=== PATIENT | male | born 1975 | race Caucasian/White ===

== ENCOUNTER → 2016-04-20 | Outpatient (CLI) | payer BC, OTHER ==
[~2016-04-20] MED LIST: CLON1TAB3 PO; CNC/36 PO; MOML PO; OXYC-57 PO; WARF2TAB PO
== END | disposition home or self-care (01) ==
LOC: C.RDSM 08:45
PROVIDERS: ATTEND Physical Medicine & Rehabilitation Sports Medicine
DX: Z96.642 Presence of left artificial hip joint (principal)

== ENCOUNTER → 2016-10-19 | Outpatient (CLI) | payer OTHER ==
[~2016-10-19] MED LIST changes: -OXYC-57 PO; -WARF2TAB PO
== END | disposition home or self-care (01) ==
LOC: C.RDSM 14:36
PROVIDERS: ATTEND Physical Medicine & Rehabilitation Sports Medicine
DX: M16.12 Unilateral primary osteoarthritis, left hip (principal); M16.2 Bilateral osteoarthritis resulting from hip dysplasia; Z96.642 Presence of left artificial hip joint

== ENCOUNTER → 2016-12-17 | Outpatient (CLI) | payer OTHER ==
--- NOTE | 2016-12-17 17:01 | DIAGNOSTIC IMAGING REPORT ---
LEFT SHOULDER 3 VIEWS HISTORY: LEFT SHOULDER PAIN COMPARISON: None. FINDINGS: There is no fracture or dislocation. Soft tissues are unremarkable. No radiopaque foreign bodies. The left clavicle is intact. Incidental noted is made of an os acromiale. IMPRESSION: No fracture or dislocation within the left shoulder. Electronically signed by: Mal Serrato M.D. 12/17/2016 4:59 PM Dictated Date/Time: 12/17/2016 4:58 PM
== END | disposition home or self-care (01) ==
LOC: C.RDSM 16:00
PROVIDERS: ATTEND Physician Assistant
DX: M25.512 Pain in left shoulder (principal)

== ENCOUNTER → 2017-01-01 | Outpatient (CLI) | payer OTHER ==
[~2017-01-01] MED LIST changes: +GADAVIST IV PRN
--- NOTE | 2017-01-01 14:03 | DIAGNOSTIC IMAGING REPORT ---
FLUOROSCOPICALLY GUIDED LEFT SHOULDER ARTHROGRAM PRIOR TO MRI CLINICAL HISTORY: Left shoulder pain. FLUOROSCOPY TIME: 11 seconds. PROCEDURE: The procedure, risks and benefits were discussed with the patient and informed written consent was obtained. The procedure was performed by Dr. Leone following a timeout. Skin overlying the left glenohumeral joint was prepped and draped in sterile fashion and local anesthesia was achieved with 1% lidocaine. Under intermittent fluoroscopic guidance, a 2 1/2 inch, 22-gauge needle was directed into the left glenohumeral joint. Positioning within the joint space was confirmed with injection of a small amount of contrast. At this time, 10 cc of a mixture of 0.05 cc of gadolinium, 10 cc of normal saline and 10 cc of Optiray 300 was injected into the left glenohumeral joint. The needle was removed. The patient tolerated the procedure well and no immediate competitions were evident. The patient was transported to MRI. IMPRESSION: Fluoroscopically guided left shoulder arthrogram prior to MRI. Electronically signed by: Keegan Leone M.D. 01/01/2017 2:02 PM Dictated Date/Time: 01/01/2017 1:59 PM
--- NOTE | 2017-01-01 14:51 | DIAGNOSTIC IMAGING REPORT ---
L UPPER EXTREMITY JOINT W/ CLINICAL HISTORY: 41 years-old Male presenting with PAIN IN LEFT SHOULDER. TECHNIQUE: Multisequence, multiplanar MR imaging of the left shoulder was performed after the administration of intra-articular contrast. IV contrast: None. COMPARISON: 12/13/2013. FINDINGS: Localizer images: Unremarkable. No bony edema. Mild superior subluxation of the humeral head with resultant narrowing of the acromiohumeral interval indicating chronic impingement. Articular cartilage preserved. Normal distention of the joint capsule with intra-articular contrast. Full-thickness tear of the posterior fibers of the supraspinatus. The configuration of the tear demonstrates a prominent laminar component extending from the footplate at the articular surface to the bursal surface at the critical zone. Partial articular surface tear at the footplate of the anterior fibers of the infraspinatus. Teres minor intact. Subscapularis intact. Postsurgical changes of tenodesis of the long head of the biceps at the proximal humeral metaphysis. Scarring noted more superiorly in the intertubercular groove. The abnormal appearance of the biceps labral complex may in part be postsurgical. Extensive abnormality of the superior labrum extending from the 2:00 position anteriorly to the posterior labrum consistent with a SLAP tear. Deficiency of the posterior labrum also noted. Normal muscle bulk and normal muscle signal intensity. Acromioclavicular joint with mild degenerative change. Flat undersurface of the acromion. IMPRESSION: 1. Postsurgical changes of tenodesis of the long head of the biceps tendon, unchanged from prior. 2. Findings concerning for extensive SLAP tear, which is new since 2013. 3. Full-thickness tear of the posterior fibers of the supraspinatus. 4. Partial articular surface tear of the anterior fibers of the infraspinatus. 5. Chronic impingement evidenced by mild superior subluxation of the humeral head and narrowing of the acromiohumeral interval. Electronically signed by: Ken Grijalva M.D. 01/01/2017 2:49 PM Dictated Date/Time: 01/01/2017 2:35 PM
== END | disposition home or self-care (01) ==
LOC: C.MRIBC 12:41
PROVIDERS: ATTEND Physician Assistant
DX: M25.512 Pain in left shoulder (principal); M75.102 Unspecified rotator cuff tear or rupture of left shoulder, not specified as traumatic

== ENCOUNTER → 2017-03-05 | Day surgery (SDC) | payer OTHER ==
[2017-02-05 11:29] VITALS: Ht 180.3 cm; Wt 113.6 kg
[~2017-03-05] VITALS: Ht 180.3 cm; Wt 113.6 kg
[~2017-03-05] MED LIST changes: +ATROPINE SULFATE 0.1 MG/ML 5ML SYR IV PRN; +BUPIVACAINE/EPINEPHRINE 0.5% MPF 1:200,000 30 ML VIAL ONE; +CEFAZOLIN 2000MG IV PUSH 10 ML IV SCH; +DEXAMETHASONE SOD INJ 4 MG/ML VIAL ONE; +EpINEphrine HCL INJ 1 MG/ML 5ML SYRINGE ONE; +EpINEphrine INJ 1MG/ML AMP 1 MG/ML AMP ONE; +FENTANYL CITRATE INJ 50 MCG/1 ML 2 ML VIAL IV PRN; +FENTANYL CITRATE INJ 50 MCG/1 ML 2 ML VIAL ONE; -GADAVIST IV PRN; +KETOROLAC TROMETHAMINE 30 MG/ML VIAL IV. PRN; +LABETALOL HCL IV 5 MG/ML 20ML IV PRN; +LACTATED RINGER'S 1000ML 1,000 ML IV SCH; +LEVOFLOXACIN 500 MG TAB PO SCH; +LIDOCAINE HCL 2% 2 ML VIAL (20MG/ML) ONE; +MIDAZOLAM HCL 1 MG/ML 2ML VIAL ONE; -MOML PO; +NAPR1TAB9 PO; +ONDANSETRON INJ 2 MG/ML 2 ML VIAL IV PRN; +ONDANSETRON INJ 2 MG/ML 2 ML VIAL ONE; +PROPOFOL IV EMULSION 10 MG/ML 20 ML VIAL IV ONE; +ROPIVACAINE 0.5% 5 MG/ML 30 ML VIAL ONE; +SODIUM CHLORIDE 0.9% 1000ML 1,000 ML IV SCH
--- NOTE | 2017-03-05 09:12 | History & Physical Bridge Note ---
H&P Re-Evaluation Bridge Note: I have examined the patient, reviewed the History & Physical and in the interval since the performance of the History & Physical I have noted the following changes of clinical significance:consent reviewed. No changes noted
--- NOTE | 2017-03-05 09:14 | Discharge Instructions ---
Discharge Instructions Date of Service Mar 05, 2017. Visit Reason for Visit: Left Shoulder Rotator Cuff Tear, Subacromial Discharge Discharge Diagnosis / Problem: same Discharge Goals Goal(s): Decrease discomfort, Improve function Medications Stopped Medications Name(s): na Restart Stopped Medication(s): use all scripts as directed Activity Recommendations Activity Limitations: as noted below Lifting Limitations: until after follow-up appointment Exercise/Sports Limitations: until after follow-up appointment May Resume Sexual Activity: when tolerated Shower/Bathe: keep incision dry Driving or Machine Use: Anesthesia . Post Anesthesia Instructions: If you have had General Anesthesia or IV Sedation: * Do not drive today. * Resume driving when surgeon permits. * Do not make important decisions or sign legal documents today. * Call surgeon for: 1. Temperature elevations greater than 101 degrees F. 2. Uncontrollable pain. 3. Excessive bleeding. 4. Persistent nausea and vomiting. 5. Medication intolerance (nausea, vomiting or rash). * For nausea and vomiting use only clear liquids such as: tea, soda, bouillon until nausea subsides, then gradually increase diet as tolerated. * If you have any concerns or questions, call your surgeon's office. If physician is unavailable and it is an emergency, call 911 or go to the nearest emergency room. . Instructions / Follow-Up Instructions / Follow-Up The following are instructions to follow after "Shoulder Surgery" including, Acromioplasty, Rotator Cuff Repair and Instability Surgery ACTIVITY RECOMMENDATIONS: * Minimize activity after surgery. * No excessive walking, jogging, sports or laboring. * Return to activity is individualized depending on the patient and type of surgery. * Driving is not permitted until at least your first post operative visit. Please ask your doctor when it is safe to resume driving. * Expect increased discomfort with increased activity. Continue to ice the shoulder as needed. SCHOOL/WORK RECOMMENDATIONS: * You may return to sedentary work or school when you are feeling more comfortable. This is usually 3-7 days after surgery. MEDICATIONS: * You will have a prescription for pain medication and an anti-inflammatory medication after surgery. * Use the pain medication for severe pain and the anti-inflammatory for less severe pain. Once the pain medication has run out, try to use the anti-inflammatory medication. If this is not effective, contact the office for assistance. * The pain medication may cause nausea, constipation and drowsiness. You should see how they affect you before driving or similar activity. * The anti-inflammatory medication may cause stomach upset and bleeding. If this occurs let your doctor know immediately . * Take a stool softener like Colace or a laxative like Senokot to prevent constipation. DIET: * Resume previous diet. SPECIAL CARE: ICE: You have the option of an ice cooler, gel packs or ice bags. * If you have an ice cooler, refer to the instructions for that device. The ice cooler may be used continuously. * If you do not have an ice cooler, you will need to use ice bags or gel packs. Do not apply ice directly to the skin. Use a thin dressing or camila shirt between the skin and ice bag. Apply ice for 20-30 minutes and repeat every 2-4 hours. This is especially important for the first 7-10 days after surgery. Once the pain improves, use ice as needed. ELEVATION: * You may be more comfortable sleeping in an upright position. Use the sling to elevate your arm. DRESSING: * Your dressing will be changed at your first therapy appointment approximately 4-5 days after surgery. Band-aids, tape strips or gauze may be applied. You may then change your dressing daily. * Reapply dressing followed by the EBIce cooling pad (if chosen) and then the sling. * Always wash your hands prior to touching the incision area. * Once the stitches are removed, you may leave the wound open to air or cover with gauze. * Expect some bloody drainage for the first few days after surgery. * Leave the tape strips, if present, in place for 5-7 days. * Band-aids and gauze may be changed daily. * There may be a gauze pad in your armpit area. This can be changed daily or replaced by a dry washcloth. SLING/BRACE: * You will need to use a sling or brace after surgery. The length of time the sling is used is dependent upon the type of surgery performed. * Arthroscopic Acromioplasty requires use of the sling for 2-4 weeks for comfort. * Labral procedures and Rotator Cuff Repairs require use of the sling for a longer period of time. Please check with your doctor prior to discontinuing the sling. BATHING: * You may shower or sponge-bathe immediately after surgery. The post operative shoulder dressing is mostly water-tight. You may shower right over this dressing, but be reasonably careful not to get the gauze or incision wet. * Once the dressing has been changed on the fourth or fifth day after surgery, you may shower and get the incision wet. * Wash with regular soap and water. * Do not bathe (submerge the incision), soak, swim or use a hot tub until the incision is completely healed over with normal skin and the doctor has given the OK to proceed. * There is no need to apply any ointments, powders or salves to your incision. * Do not apply alcohol or hydrogen peroxide directly to the incision. * Diluted peroxide (50:50 mixture with sterile saline) may be used to clean dried blood from around the incision area. THERAPY: * You will begin therapy four or five days after surgery. * Organized therapy with the therapist is important for the first 2-4 months after surgery depending on the type of procedure. During that time you will attend therapy 1-3 times per week. * You will also need to do daily exercises for range of motion and strength as instructed. * Patients who have a Capsular Shift Procedure will need to abide by temporary range of motion limitations. * Patients having Rotator Cuff Surgery are not allowed to actively lift their arms until 4-6 weeks after surgery. * Please check with your doctor regarding appropriate motion restrictions. FOLLOW UP VISIT: * If not already scheduled, please call the office at to schedule a follow-up appointment for 10 days after surgery and monthly thereafter. Diet Recommendations Recommended Home Diet: resume previous diet Procedures Procedures Performed: ascopy cuff repair Pending Studies Studies pending at discharge: no Medical Emergencies . Who to Call and When: Medical Emergencies: If at any time you feel your situation is an emergency, please call 911 immediately. . Non-Emergent Contact Non-Emergency issues call your: Specialist Call Non-Emergent contact if: temperature is above 101.5, wound has increased drainage, wound has increased redness, wound has increased pain . . "Provider Documentation" section prepared by Eric Sharma. .
--- NOTE | 2017-03-05 10:41 | [facility] Post Operative Brief Note ---
Immediate Operative Summary Operative Date Mar 05, 2017. Pre-Operative Diagnosis Left Shoulder Rotator Cuff Tear Post-Operative Diagnosis Same Procedure(s) Performed Left Shoulder Arthroscopic Rotator Cuff Repair, Subacromial Decompression/os debridement Surgeon Dr. Beny Sharma E M Assembler Surgeon(s) Thomas Reinoso PA-C Estimated Blood Loss trace Findings see op note Fluids (cc crystalloids) 900cc Specimens None Drains none Anesthesia LMA/block Complication(s) None Disposition Recovery Room / PACU
--- NOTE | 2017-03-05 10:43 | [facility] Operative Report ---
Operative Report Operative Date Mar 05, 2017. Pre-Operative Diagnosis Left Shoulder Rotator Cuff Tear Post-Operative Diagnosis Same Procedure(s) Performed Left Shoulder Arthroscopic Rotator Cuff Repair, Subacromial Decompression/os debridement Surgeon Dr. Beny Sharma Finger Cobbler Surgeon(s) Thomas Reinoso PA-C Estimated Blood Loss trace Findings none Fluids (cc crystalloids) 900cc Specimens None Complication(s) None Disposition Recovery Room / PACU I attest to the content of the Intraoperative Record and any orders documented therein. Any exceptions are noted below.
--- NOTE | 2017-03-05 11:12 | OPERATIVE REPORT ---
DATE OF OPERATION: 03/05/2017 SURGEON: Dr. Sharma. TOILET ATTENDANT: Dr. Reinoso. No resident or fellow available. 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 POSTOPERATIVE DIAGNOSES: Same. History of a previous surgery. PERIOPERATIVE SITUATION: Medically cleared male with intractable shoulder pain with physical exam, x-ray and MRI scan consistent with the above diagnosis. He had a previous procedure that failed and has continued pain all about the shoulder including the os. It is not something that could be grafted as it was already trimmed once by a prior procedure. He had a biceps tenotomy as well. OPERATION: The patient appropriately identified, site verified, consent verified, 2 grams of Ancef as being given. The shoulder was examined revealing no anterior instability had posterior glide with no instability as far as dislocatability. He was then carefully prepped and draped in usual routine fashion in the beach chair position, left upper extremity. A posterior portal made 2 cm medial and inferior to posterolateral tip of the acromion and anterior portal made just off the edge of the AC joint. Inspection of the joint revealed a previous biceps tenotomy, some labral degeneration, rotator cuff tendinopathy at the posterior aspect of the supraspinatus and anterior aspect of the infraspinatus, this was debrided. It was then localized with a needle. Subacromial space was then entered. The complete os acromiale was tipped down and was very loose and starting to fragment. It was teased out with an electrothermal device as there was no other option and it was carefully debrided using a kimmie and shaver, leaving all the deltoid fascia intact. It was well recognized that this would lead to recurrent pain if left alone as it is and it was too small to graft, so this was the only option. The patient was informed of this. Once this was all debrided nicely, the rotator cuff was then identified, tear area was debrided down to bare bone and 3 sutures placed with two 475 anchors with an excellent repair. This was then reviewed from the side and there was no additional pathology. The procedure was then terminated. All instruments and fluid removed. The portals closed with 4-0 nylon, dressed with Xeroform, 4 x 4 gauze, ABD pads and Ioban dressing, and a shoulder immobilizer was then placed. Estimated blood loss was trace. Crystalloid 900 mL. Rotator cuff tear size was approximately 2 cm. No DVT prophylaxis required. I attest to the content of the Intraoperative Record and any orders documented therein. Any exception s are noted below.
[2017-03-05 12:02] VITALS: BP 149/92; PULSE 72; O2SAT 97
--- NOTE | 2017-03-05 12:04 | Anesthesia Progress Nt - [facility] ---
Anesthesia Post Op Note Date & Time Mar 05, 2017 at 12:04 Vital Signs Pain Intensity: 0 Vital Signs Past 12 Hours Date Time Temp Pulse Resp B/P (MAP) Pulse Ox O2 Delivery O2 Flow Rate FiO2 03/05/17 12:02 72 18 149/92 (111) 97 Room Air 03/05/17 11:21 36.7 76 18 141/85 (103) 98 Room Air 03/05/17 11:16 145/69 03/05/17 11:15 89 17 03/05/17 11:15 93 17 94 03/05/17 11:11 144/90 03/05/17 11:10 86 12 03/05/17 11:10 86 12 93 03/05/17 11:06 36.7 82 16 141/83 95 Room Air 03/05/17 11:06 141/83 03/05/17 11:05 84 21 97 03/05/17 11:05 84 21 03/05/17 11:01 136/85 03/05/17 11:00 89 22 03/05/17 11:00 87 22 97 03/05/17 10:56 154/87 03/05/17 10:55 88 17 97 03/05/17 10:55 89 17 03/05/17 10:51 150/84 03/05/17 10:50 84 17 95 03/05/17 10:50 85 17 03/05/17 10:45 94 147/87 95 03/05/17 10:45 94 03/05/17 10:44 36.6 97 16 147/87 96 Mask 10 03/05/17 09:25 14 03/05/17 09:24 72 03/05/17 09:24 74 41 99 03/05/17 09:23 70 11 99 03/05/17 09:23 70 03/05/17 09:22 68 03/05/17 09:22 67 24 98 03/05/17 09:21 73 03/05/17 09:21 70 34 134/89 100 03/05/17 09:20 68 03/05/17 09:20 69 21 100 03/05/17 09:16 131/104 03/05/17 09:15 69 03/05/17 09:15 68 27 99 03/05/17 09:11 140/91 03/05/17 09:10 70 27 100 03/05/17 09:10 68 03/05/17 09:08 134/90 03/05/17 09:05 64 0 95 03/05/17 09:05 64 03/05/17 09:00 65 03/05/17 09:00 64 0 98 03/05/17 08:55 0 03/05/17 08:35 37.0 67 16 127/104 (112) 97 Room Air 03/05/17 08:34 127/104 Notes Mental Status: alert / awake / arousable, participated in evaluation Pt Amnestic to Procedure: Yes Nausea / Vomiting: adequately controlled Pain: adequately controlled Airway Patency, RR, SpO2: stable & adequate BP & HR: stable & adequate Hydration State: stable & adequate Anesthetic Complications: no major complications apparent
== END | disposition home or self-care (01) ==
LOC: X.SURG 08:18
PROVIDERS: ATTEND Physical Medicine & Rehabilitation Sports Medicine
DX: S46.012A Strain of muscle(s) and tendon(s) of the rotator cuff of left shoulder, initial encounter (principal); M75.42 Impingement syndrome of left shoulder; V29.9XXA Motorcycle rider (driver) (passenger) injured in unspecified traffic accident, initial encounter; Z98.890 Other specified postprocedural states; Z68.35 Body mass index [BMI] 35.0-35.9, adult; E66.9 Obesity, unspecified; Z96.642 Presence of left artificial hip joint; F90.9 Attention-deficit hyperactivity disorder, unspecified type

== ENCOUNTER → 2017-04-19 | Outpatient (CLI) | payer OTHER ==
[~2017-04-19] MED LIST changes: -ATROPINE SULFATE 0.1 MG/ML 5ML SYR IV PRN; -BUPIVACAINE/EPINEPHRINE 0.5% MPF 1:200,000 30 ML VIAL ONE; -CEFAZOLIN 2000MG IV PUSH 10 ML IV SCH; -DEXAMETHASONE SOD INJ 4 MG/ML VIAL ONE; -EpINEphrine HCL INJ 1 MG/ML 5ML SYRINGE ONE; -EpINEphrine INJ 1MG/ML AMP 1 MG/ML AMP ONE; -FENTANYL CITRATE INJ 50 MCG/1 ML 2 ML VIAL IV PRN; -FENTANYL CITRATE INJ 50 MCG/1 ML 2 ML VIAL ONE; -KETOROLAC TROMETHAMINE 30 MG/ML VIAL IV. PRN; -LABETALOL HCL IV 5 MG/ML 20ML IV PRN; -LACTATED RINGER'S 1000ML 1,000 ML IV SCH; -LEVOFLOXACIN 500 MG TAB PO SCH; -LIDOCAINE HCL 2% 2 ML VIAL (20MG/ML) ONE; -MIDAZOLAM HCL 1 MG/ML 2ML VIAL ONE; -ONDANSETRON INJ 2 MG/ML 2 ML VIAL IV PRN; -ONDANSETRON INJ 2 MG/ML 2 ML VIAL ONE; -PROPOFOL IV EMULSION 10 MG/ML 20 ML VIAL IV ONE; -ROPIVACAINE 0.5% 5 MG/ML 30 ML VIAL ONE; -SODIUM CHLORIDE 0.9% 1000ML 1,000 ML IV SCH
== END | disposition home or self-care (01) ==
LOC: C.RDSM 08:40
PROVIDERS: ATTEND Physical Medicine & Rehabilitation Sports Medicine
DX: M75.122 Complete rotator cuff tear or rupture of left shoulder, not specified as traumatic (principal); Z96.642 Presence of left artificial hip joint

== ENCOUNTER → 2017-07-29 | Outpatient (CLI) | payer OTHER ==
[~2017-07-29] MED LIST changes: +B-COTAB18 PO; +GLUC10007 PO; +OMEG10007 PO
== END | disposition home or self-care (01) ==
LOC: C.RDSM 13:32
PROVIDERS: ATTEND Physical Medicine & Rehabilitation
DX: M54.5 Low back pain (principal)

== ENCOUNTER 2020-10-21 05:58 | Inpatient (IN) ==
--- NOTE | 2020-08-13 10:45 | PAT Medication Instructions ---
Medication Instructions Date of Service August 13, 2020 Home Medications bupropion HCl [Wellbutrin XL] 300 mg PO QAM ibuprofen 800 mg PO TID ASK your surgeon for instructions ibuprofen 800 mg PO TID Take morning of surgery With a small sip of water, OTHERWISE NOTHING TO EAT OR DRINK AFTER MIDNIGHT: bupropion HCl [Wellbutrin XL] 300 mg PO QAM Insulin Dependent Diabetic Patients * Test your blood sugar the morning of surgery * If Blood Sugar is GREATER THAN 150, take HALF of your regular dose of: * If Blood Sugar is LESS THAN 150, DO NOT TAKE ANY: Other Notes If you have any questions please call us at [phone] or [phone] or [phone] or [phone]
--- NOTE | 2020-08-16 10:08 | Anesthesiology Consultation ---
Date of Service August 16, 2020 Assessment & Plan (1) Encounter for pre-operative examination: COVID screening: Per assessment on 08/16: Travel screen negative, no known COVID- 19 positive contacts or current COVID-19 related symptoms. Patient vaccinated. Surgeon arranging preop COVID testing. Awaiting results. Chart Review Chart Review: Acceptable Risk for Surgery and Patient seen in Pre Admission Testing Teaching & Discussion Pre-Anesthesia Teaching/Discussion Notes: Instructed NPO after midnight before surgery,except medications with 15 cc of water. Medication instructions p rovided according to the PAT guidelines. History Surgery Operation Date: 08/30/20 07:45 Proposed Procedures p L3-L4 Posterior Decompression Fusion , Possible L4-L5, Spinal Cord Monitoring - Dhruv Portillo DO Height/Weight Height: 5 ft 11 in Weight: 123.5 kg Allergies Allergy/AdvReac Type Severity Reaction Status Date / Time No Known Allergies Allergy Verified 08/05/20 11:36 Medications Home Medications Medication Instructions Recorded Confirmed Last Taken bupropion HCl [Wellbutrin XL] 300 mg PO QAM 08/05/20 08/05/20 Unknown ibuprofen 800 mg PO TID 08/05/20 08/05/20 Unknown buspirone [BuSpar] 10 mg PO TID 08/16/20 08/16/20 Unknown hydroxyzine HCl 50 mg PO TID PRN 08/16/20 08/16/20 Unknown Past Medical History Medical History ADD (attention deficit disorder) Anxiety and depression Arthritis Degenerative disc disease Obesity Exercise / Class Metabolic Activity II 4-5 Yardwork/Stairs/Walk up hill Past Family History Family History Mother Family history of diabetes mellitus Other No family history of adverse response to anesthesia Past Surgical History Surgical History Biceps tendon tear Left side repair H/O metal removed from eye H/O shoulder surgery Left x2 History of excision of pilonidal cyst History of herniorrhaphy R/L inguinal History of total hip arthroplasty Left Hx of vasectomy S/P total hip resurfacing Left [place] teeth removed Past Anesthesia History No Hx of Anesthesia Complications (except episode of PONV), No Family Hx of Anesthesia Complications and Other (Awareness with hip replacement) History of PONV No Hx of Motion Sickness and History of PONV (with remote surgery (no issues with subsequent surgeries)) Social History Smoking Status: Never smoker Do You Dip or Chew Tobacco: No Hx Alcohol Use: No substance use type: does not use Review of Systems Patient denies chest pain, shortness of breath, dyspnea on exertion, fever, chills, cough, wheezing, palpitations. Physical Exam Vital Signs VITALS BP 148/92 (pt reports BP earlier in the day was 140/84) P 95 TEMP 98.4 SP02 96%RA RESP 18 PHYSICAL Full cervical extension range of motion. Full TMJ range of motion. TMD 4 finger breaths Mallampati Score 2 Dentition: intact, + bridge (upper front) Lungs: clear throughout to auscultation Cardiac: regular rate and rhythm, no murmurs noted Spine: normal Extremities: no edema Lab Results Anesthesia Preop Results Results Anesthesia Widget: WBC 11.17 K/uL (4.8-10.8) H 08/16/20 Hgb 15.6 g/dL (14.0-18.0) 08/16/20 Hct 46.2 % (42-52) 08/16/20 Plt 234 K/uL (130-400) 08/16/20 Na 140 mmol/L (136-145) 08/16/20 K 4.1 mmol/L (3.5-5.1) 08/16/20 Cl 107 mmol/L (98-107) 08/16/20 CO2 30 mmol/L (21-32) 08/16/20 BUN 14 mg/dl (7-18) 08/16/20 Creat 1.16 mg/dl (0.6-1.4) 08/16/20 Glucose Level 105 mg/dl (70-99) H 08/16/20 PT 10.0 Seconds (9.0-12.0) 08/16/20 PTT 26.0 Seconds (21.0-31.0) 08/16/20 INR 1.0 (0.9-1.1) 08/16/20 Urine Color Yellow 08/16/20 Urine Appearance Clear (Clear) 08/16/20 Urine pH 6.0 (4.5-7.5) 08/16/20 Urine Specific [place] 1.007 (1.000-1.030) 08/16/20 Urine Protein Negative (Negative) 08/16/20 Urine Glucose (UA) Negative (Negative) 08/16/20 Urine Ketones Negative (Negative) 08/16/20 Urine Blood Negative (Negative) 08/16/20 Urine Nitrite Negative (Negative) 08/16/20 Urine Bilirubin Negative (Negative) 08/16/20 Urine Urobilinogen Negative (Negative) 08/16/20 Urine Leukocyte Esterase Negative (Negative) 08/16/20 Blood Type AB Negative 08/16/20 Antibody Screen NEGATIVE 08/16/20 Lab Comments: Elevated WBC > preop labs to be forwarded to PCP for continuity of care Testing Electrocardiogram Date: 08/16/20 Findings: + NSR @ (84) Chest X-Ray Date: 08/16/20 FINDINGS: The cardiac and mediastinal contours are normal. There is no evidence of focal pulmonary consolidation. There is no evidence of failure. No pleural effusions are visualized.[ IMPRESSION: No active disease in the chest.
[2020-10-21] MEDS ORDERED: ACETAMINOPHEN 500 MG TAB PO SCH (06:00)
[2020-10-21] MEDS ORDERED: CeleBREX 200 MG CAP PO SCH (06:00)
[2020-10-21] MEDS ORDERED: LR 15ML/HR IV SCH (06:00)
[2020-10-21] MEDS ORDERED: GABAPENTIN 900 MG DOSE PO SCH (06:00)
[2020-10-21] MEDS ORDERED: fentaNYL citrate 100 MCG/2 ML VIAL IV PRN (06:46)
[2020-10-21] MEDS ORDERED: ATROPINE SULFATE 0.1 MG/ML 10ML SYR IV PRN (06:46)
[2020-10-21] MEDS ORDERED: ePHEDrine sulfate 50 MG/ML AMP IV PRN (06:46)
[2020-10-21] MEDS ORDERED: HYDROmorphone INJ 2 MG/ML SYR/VIAL IV PRN (06:46)
[2020-10-21] MEDS ORDERED: ONDANSETRON INJ 2 MG/ML 2 ML VIAL IV PRN ×2 (06:46→11:15)
[2020-10-21] MEDS ORDERED: fentaNYL citrate 100 MCG/2 ML VIAL ONE (06:47)
[2020-10-21] MEDS ORDERED: MIDAZOLAM HCL 1 MG/ML 2ML VIAL ONE (06:47)
[2020-10-21] MEDS ORDERED: LIDOCAINE 2% 2 ML VIAL/AMP(20MG/ML) INFIL ONE (06:47)
[2020-10-21] MEDS ORDERED: PROPOFOL IV EMULSION 10 MG/ML 20 ML VIAL IV ONE ×2 (06:47→09:48)
[2020-10-21] MEDS ORDERED: BUPIVACAINE 0.5 % 5 MG/1 ML MPF 30ML VIAL ONE (06:49)
[2020-10-21] MEDS ORDERED: EPINEPHrine INJ 1 MG/ML AMP ONE (06:49)
[2020-10-21] MEDS ORDERED: DEXAMETHASONE SOD INJ 4 MG/ML VIAL ONE (07:07)
[2020-10-21] MEDS ORDERED: ROCURONIUM BROMIDE 10 MG/ML 5 ML VIAL IV ONE ×4 (07:07→09:37)
[2020-10-21] MEDS ORDERED: ONDANSETRON INJ 2 MG/ML 2 ML VIAL ONE ×2 (07:07→09:01)
--- NOTE | 2020-10-21 07:31 | History & Physical Bridge Note ---
Date of Service October 21, 2020 History & Physical Bridge Note I have examined the patient, reviewed the History & Physical and in the interval since the performance of the History & Physical I have noted the following changes of clinical significance: no changes noted
--- NOTE | 2020-10-21 07:32 | History & Physical Report ---
Date of Service October 21, 2020 Assessment & Plan (1) Neurogenic claudication due to lumbar spinal stenosis: Plan: L3-L4 decompression fusion, possible L4-L5 History of Present Illness Chief Complaint: Back and bilateral leg pain Primary Care Provider: Luis Alberto Sheridan Presents with chronic persistent back and bilateral leg pain after failed extensive course of nonoperative care is here for surgical invention. Allergies Allergy/AdvReac Type Severity Reaction Status Date / Time No Known Allergies Allergy Verified 10/21/20 06:20 Home Medications Medication Instructions Recorded Confirmed Type ibuprofen 800 mg tablet 800 mg PO TID PRN 08/05/20 10/21/20 History clonazepam 1 mg tablet (Klonopin) 1 mg PO TID 10/09/20 10/21/20 History duloxetine 60 mg capsule,delayed 60 mg PO QAM 10/09/20 10/21/20 History release (Cymbalta) methylphenidate HCl 36 mg 36 mg PO BID 10/09/20 10/21/20 History tablet,extended release 24 hr (Concerta) Past Med/Surg History Medical History (Updated 10/21/20 @ 07:32 by Dhruv Portillo DO) ADD (attention deficit disorder) Anxiety and depression Arthritis Degenerative disc disease PAIN LOWER BACK Obesity Surgical History Biceps tendon tear Left side repair H/O metal removed from eye H/O shoulder surgery Left x2 History of excision of pilonidal cyst History of herniorrhaphy RIGHT inguinal History of total hip arthroplasty Left Hx of vasectomy Nausea and vomiting after administration of anesthetic agent WITH FIRST SURGERY/WOKE UP DURING HIP SURGERY-"HEARD THE SAW"THEN WENT BACK TO SLEEP S/P total hip resurfacing Left [place] teeth removed Family History Mother Family history of diabetes mellitus Other No family history of adverse response to anesthesia Social History (Updated 10/09/20 @ 11:48 by Jessica Quiros RN) Smoking Status: Never smoker Second Hand Exposure: No; Do You Dip or Chew Tobacco: No; Hx Alcohol Use: No Hx Substance Use: No Preferred Language: Brazilian Communication Ability: Effective Application Analyst Required: No Beliefs That Will Affect Care: None Current Living Situation: Spouse and Family current occupational status: employed current occupation: [employer] Other Information That Helps Us Care for You: No Feels Safe at Home: Yes Safety Concerns: Feels Safe At This Time Assistive Devices: Contacts and Glasses Assistive Devices Comment: WILL WEARS GLASSES DOS/BRIDGE FRONT UPPER Physical Exam Physical Exam: Patient is alert and oriented Heart regular rhythm Lungs clear to auscultation Results & Data ([facility]) Vital Signs (Past 12 Hours) Vital Signs Temp Pulse Resp BP Pulse Ox 10/21/20 06:41 36.9 C 69 18 136/86 93
[2020-10-21] MEDS ORDERED: KETAMINE 50 MG/5 ML SYRINGE ONE (08:08)
[2020-10-21] MEDS ORDERED: FLOSEAL HEMOSTATIC MATRIX 10ML TOP ONE ×2 (08:21→08:50)
[2020-10-21] MEDS ORDERED: GLYCOPYRROLATE 0.2 MG/ML VIAL ONE (09:01)
[2020-10-21] MEDS ORDERED: NEOSTIGMINE METHYLSULFATE 1 MG/ML 10ML VIAL ONE (09:01)
[2020-10-21] MEDS ORDERED: HYDROmorphone INJ 2 MG/ML SYR/VIAL ONE (09:09)
--- NOTE | 2020-10-21 09:55 | Operative Report ---
Post Operative Report Pre & Post Diagnosis Operation Date: 10/21/20 07:45 Pre-Op Diagnosis: Neurogenic claudication due to lumbar spinal stenosis Post-Op Diagnosis: Neurogenic claudication due to lumbar spinal stenosis I identified the patient and participated in the time-out.: Yes Procedure Operation Date: 10/21/20 07:45 Actual Procedures #1 lumbar decompression with bilateral medial facetectomies and foraminotomies L2-3, L3-4 and L4-5. #2 posterior spinal fusion L3-4 L4-5. #3 placement posterior instrumentation L3-4 L4-5. #4 interbody fusion L3-4 L4-5 #5 placement peek cage 14 x 26 at L3-L4 and 12 x 26 mm at L4-L5. #6 placement locally harvested morselized autograft in the posterior lateral gutters. #7 placement of I factor with Vitoss in the posterior lateral gutters interbody space. Surgeon Dhruv Portillo, DO Operations Manager Assistant Jessie Taveras Estimated Blood Loss 200 Findings See Below The patient is 5 foot 11 inches tall weighing over 127 kg with a BMI in excess of 39. The patient's body habitus did contribute to significant technical difficulty requiring her deepest retractors longus instruments in order to perform his procedure. This had at least 50% increase to the operative time. Specimens None Indications This is a 44-year-old male who presents above-mentioned diagnosis after failing since course of nonoperative care is here for the above-mentioned procedure. Description of Procedure Patient was met with identified informed consent obtained. Patient was then taken to the operative suite underwent an patient placed in a prone position the Shoaib table Ravin frame. All bony prominences well-padded eyes inspected to ensure no external pressure placed upon the. This point lumbar spine was prepped and draped in a sterile fashion. Sharp dissection with the assistance pericardial form down to and exposing the lamina transverse processes of L3-L4 and L5 bilaterally. From caudal cephalad fashion complete laminectomy of L4 L3 and partial laminectomy of L2 was performed including bilateral medial facetectomies and foraminotomies addressing severe spinal stenosis. Pedicle screws were then placed in L3-L4-L5 bilaterally with assistance of fluoroscopy and the properly sized spencer placed. By way the transforaminal approach left complete discectomy of L4 and L5 was performed endplates curetted to subcortical bleeding bone and a 12 x 26 mm peek cage filled with I factor tapped in position. I then proceeded to L3-L4 and again by way of a transforaminal portion left complete discectomy was performed endplates curetted to subcortically bone and a 14 x 26 mm peek cage filled with I factor tapped in position. The rods were the compressed locked into final position bilaterally. Transverse processes of L3-L4-L5 burred to subcortical bleeding bone. I factor combined with the toxin was then placed in the posterior gutters. 15 round LYNDA drain inserted. The incision was then closed with 1 Vicryl to fascia 2-0 Vicryl subcutaneously and 4 Monocryl for final skin closure. Steri-Strip sterile dressings placed. Patient waken taken back in stable condition. Please note spinal cord monitoring was utilized at the procedure no changes noted. Lastly Jessie Taveras was present at the entire surgery involved the patient positioning complex portions of the surgery and final skin closure. I attest to the content of the Intraoperative Record and any orders documented therein. Any exceptions are noted below.
--- NOTE | 2020-10-21 10:17 | Fluoroscopy Report ---
FL lumbar spine 2-3V CLINICAL HISTORY: L3-L5 decompression and fusion. COMPARISON STUDY: Lumbar spine MRI June 13, 2020. FLUOROSCOPY TIME: 19 seconds. FLUOROSCOPIC IMAGES: 3 FINDINGS: Fluoroscopy was provided during L3-L4 and L4-L5 discectomy, posterior decompression bilater al pedicle screw fusion. Hardware is intact. There are no unexpected radiopaque foreign bodies. IMPRESSION: Fluoroscopy provided during L3-L5 posterior decompression, discectomy and pedicle screw fusion. ACT 112: Negative or not required by law. Electronically signed by: Keegan Leone M.D. 10/21/2020 10:16 AM
[2020-10-21] MEDS ORDERED: diphenhydrAMINE Capsule 25 MG CAP PO PRN (11:15)
[2020-10-21] MEDS ORDERED: METOCLOPRAMIDE HCL INJ 5 MG/ML 2 ML VIAL IV PRN (11:15)
[2020-10-21] MEDS ORDERED: bisacodyL 10 MG SUPP PR PRN (11:15)
[2020-10-21] MEDS ORDERED: LORazepam 0.5 MG/1 ML VIAL IV PRN (11:15)
[2020-10-21] MEDS ORDERED: DO NOT ADMINISTER FLU VACCINE PRN (11:15)
[2020-10-21] MEDS ORDERED: NALOXONE HCL 0.4 MG/1 ML VIAL/CARP IV PRN (11:15)
[2020-10-21] MEDS ORDERED: traMADol HCL 50 MG TABLET PO PRN (11:15)
[2020-10-21] MEDS ORDERED: hydrOXYzine HCl 25 MG TAB PO PRN (11:15)
[2020-10-21] MEDS ORDERED: ACETAMINOPHEN 1,000 MG/100 ML VIAL IV PRN (11:15)
[2020-10-21] MEDS ORDERED: ACETAMINOPHEN 500 MG TAB PO PRN (11:15)
[2020-10-21] MEDS ORDERED: DO NOT ADMINISTER PNEUMOCOCCAL VACCINE PRN (11:15)
[2020-10-21] MEDS ORDERED: MAGNESIUM HYDROXIDE SUSP 30 ML UDC PO PRN (11:15)
[2020-10-21] MEDS ORDERED: LORazepam 0.5 MG TAB PO PRN (11:15)
[2020-10-21] MEDS ORDERED: SOD PHOSPHATE/SOD BIPHOSPHATE ENEMA 132 ML BTL PR PRN (11:15)
[2020-10-21] MEDS ORDERED: HYDROmorphone INJ 1 MG/ML SYRINGE IV PRN (11:15)
[2020-10-21] MEDS ORDERED: ONDANSETRON 4 MG OD TAB PO PRN (11:15)
[2020-10-21] MEDS ORDERED: PROMETHAZINE HCL 12.5 MG in SODIUM CHLORIDE 0.9% 50 ML IV PRN (11:15)
[2020-10-21] MEDS ORDERED: ALUMINUM/MAGNESIUM SUSP 30 ML UDC PO PRN (11:15)
[2020-10-21] MEDS ORDERED: FAMOTIDINE 20 MG TAB PO PRN (11:15)
[2020-10-21] MEDS ORDERED: HYDROmorphone INJ 0.5 MG/0.5 ML SYR IV PRN (11:15)
--- NOTE | 2020-10-21 11:43 | Anesthesiology Progress Note ---
Date of Service October 21, 2020 Anesthesia Post Procedure Vital Signs Vital Signs: Temp Pulse Pulse Resp BP BP Pulse Ox 10/21/20 10:55 78 12 140/92 95 10/21/20 10:45 36.7 C 77 12 136/88 96 10/21/20 10:35 80 12 145/87 H 96 10/21/20 10:25 75 10 L 155/94 H 91 10/21/20 10:16 36.5 C 95 H 10 L 156/96 H 93 10/21/20 06:41 36.9 C 69 18 136/86 93 Transfer of Care Handoff Completed per policy Notes Mental Status: alert / awake / arousable and participated in evaluation Patient Amnestic to Procedure: Yes Nausea / Vomiting: adequately controlled Pain: adequately controlled Airway Patency, RR, SpO2: stable & adequate BP & HR: stable & adequate Hydration State: stable & adequate Anesthetic Complications: no major complications apparent
[2020-10-21] MEDS: oxyCODONE HCL IR 5 MG TAB (IMMEDIATE RELEASE) PO PRN ×2 (12:27→19:26)
[2020-10-21] MEDS: LACTATED RINGER'S 1,000 ML IV SCH ×2 (12:27→18:08)
[2020-10-21] MEDS: clonazePAM 1 MG TAB PO SCH ×2 (15:47→20:23)
[2020-10-21] MEDS: ceFAZolin 2000MG 2,000 MG/15 ML SYR IV SCH (15:47)
[2020-10-21] MEDS: KETOROLAC 30 MG/ML VIAL IV SCH (18:08)
[2020-10-21] MEDS: DOCUSATE SODIUM/SENNA 50/8.6MG TAB PO SCH (20:23)
[2020-10-22] MEDS: ceFAZolin 2000MG 2,000 MG/15 ML SYR IV SCH (00:34)
[2020-10-22] MEDS: LACTATED RINGER'S 1,000 ML IV SCH (00:34)
[2020-10-22] MEDS: KETOROLAC 30 MG/ML VIAL IV SCH ×3 (00:36→12:50)
[2020-10-22] MEDS: oxyCODONE HCL IR 5 MG TAB (IMMEDIATE RELEASE) PO PRN ×2 (00:39→22:51)
[2020-10-22] MEDS: POLYETHYLENE (MIRALAX) 17 GM PACK PO SCH ×4 (05:35→22:52)
[2020-10-22 06:30] LABS: Eosinophils # (auto) 0.01 K/uL (0-0.5); Eosinophils % (auto) 0.1 %; Hemoglobin 12.3 g/dL (14.0-18.0); Immature Granulocytes # (auto) 0.05 K/uL (0.00-0.02); Immature Granulocytes % (auto) 0.4 %; Lymphocytes # (auto) 1.81 K/uL (1.2-3.4); Lymphocytes % (auto) 13.2 %; Mean Corpuscular Hemoglobin 28.4 pg (25-34); Mean Corpuscular Hgb Conc 33.2 g/dL (32-36); Mean Corpuscular Volume 85.5 fL (80-100); Mean Platelet Volume 9.8 fL (7.4-10.4); Monocytes % (auto) 8.7 %; Neutrophils # (auto) 10.68 K/uL (1.4-6.5); Neutrophils % (auto) 77.6 %; Platelet Count 220 K/uL (130-400); RDW Coefficient of Variation 13.1 % (11.5-14.5); RDW Standard Deviation 41.6 fL (36.4-46.3); Red Blood Count 4.33 M/uL (4.7-6.1); White Blood Count 13.75 K/uL (4.8-10.8)
[2020-10-22 06:57] LABS: BUN Creatinine Ratio 22.2 (10-20); Calcium 8.2 mg/dl (8.5-10.1); Creatinine Clr Calc Pharmacy 135.2 ml/min; Est GFR (Non-African American) 97.5 ml/min; Potassium 4.4 mmol/L (3.5-5.1)
[2020-10-22] MEDS: clonazePAM 1 MG TAB PO SCH ×3 (09:02→20:47)
[2020-10-22] MEDS: DULoxetine HCL 60 MG CAP PO SCH (09:03)
--- NOTE | 2020-10-22 10:51 | Orthopedic Progress Note ---
Date of Service October 22, 2020 Assessment & Plan (1) Neurogenic claudication due to lumbar spinal stenosis: Plan: This time we will initiate physical therapy monitor LYNDA output hopefully discharge home in the next day or so. Admission and Anticipated Discharge Date Admission Date: October 21, 2020 Subjective Patient's back pain is controlled leg symptoms markedly improved Physical Exam Physical Exam: Patient is good strength testing appears comfortable. Results & Data ([facility]) Vital Signs (Past 12 Hours) Vital Signs Temp Pulse Pulse Resp BP Pulse Ox 10/22/20 07:03 36.9 C 67 18 113/73 95 10/22/20 03:23 36.6 C 68 16 99/65 L 96
[2020-10-22] MEDS: DOCUSATE SODIUM/SENNA 50/8.6MG TAB PO SCH (20:47)
[2020-10-23] MEDS: POLYETHYLENE (MIRALAX) 17 GM PACK PO SCH ×2 (06:38→13:14)
[2020-10-23] MEDS: oxyCODONE HCL IR 5 MG TAB (IMMEDIATE RELEASE) PO PRN ×2 (06:44→13:13)
[2020-10-23] MEDS: clonazePAM 1 MG TAB PO SCH ×2 (08:04→13:13)
[2020-10-23] MEDS: DULoxetine HCL 60 MG CAP PO SCH (08:04)
[2020-10-23] MEDS ORDERED: dexAMETHasone 8 MG in SYRINGE 0 ML IV SCH (09:00)
--- NOTE | 2020-10-23 09:50 | Discharge Summary ---
Date of Service October 23, 2020 Admission HPI Per Admitting Provider Presents with chronic persistent back and bilateral leg pain after failed extensive course of nonoperative care is here for surgical invention. Principal Diagnosis Lumbar spinal stenosis with neurogenic medication Discharge Data Allergies Allergy/AdvReac Type Severity Reaction Status Date / Time No Known Allergies Allergy Verified 10/21/20 06:20 Procedures Performed Operation Date: 10/21/20 07:45 Actual Procedures p L3-L5 Posterior Decompression Fusion, Spinal Cord Monitoring(Not Applicable) - Dhruv Portillo DO Ordered Studies 10/21/20 07:45 [place] lumbar spine 2-3V Routine Hospital Course (1) Neurogenic claudication due to lumbar spinal stenosis: Patient underwent lumbar decompression fusion [place] posting orthopedic for postop labor postop day 1 he was up and ambulating progressed to postop day #2. Pain well controlled. Excellent strength testing. LYNDA drain decreasing probably. Subsequent discharge home. Discharge orders instructions from the chart for further review. Total Time Total Time Spent Total Time Spent (In Minutes): 20 minutes Discharge Plan Discharge Items Patient Disposition: Home - Self-Care Reason For Visit: Unspecified Thoracic, Thoracolumbar and Lumbosacra Discharge Diagnosis: Lumbar spinal stenosis with neurogenic claudication Activity: As commented below Non-emergency contact: Primary Care Provider Call non-emergency contact if: you have any medication questions Follow-up/Referrals: Luis Alberto Sheridan D.O. [Primary Care Provider] - Diet: Regular Addtl Attending Provider Instructions: ACTIVITY RECOMMENDATIONS: SELF CARE INSTRUCTIONS AFTER THORACIC/LUMBAR FUSIONS 1. You may walk to your tolerance. It is good exercise for your legs and back. Expect some back and intermittent leg aches and pains. 2. You may perform "counter-top" level activities (make a sandwich, juanjose with a project, etc.). 3. No bending or lifting of more than 10 pounds or back twisting of any nature (roll like a log when turning in bed). 4. You may ride in a car for 20-30 minutes at a time. No driving until after your first visit with your doctor. 5. Frequent changes of position and restricting sitting to 30 minutes at a time will help limit the amount of back spasms and stiffness you may experience. 6. You may discontinue the use of ambulatory aids (cane, crutches, etc.) once your strength and confidence allow. 7. You may accounts administrator the shower and let water strike your incision when you arrive home at least once daily. Do not take a tub bath, sit in a hot tub or go into a swimming pool until after your first recheck in the office. SPECIAL CARE INSTRUCTIONS: VERY IMPORTANT TO READ AND REVIEW A. Your surgical incision has been closed with a cosmetic suture under the skin that will dissolve in about 6 weeks. In 14 days, you can use a pair of clean scissors and cut the suture that is left outside of the skin at the ends of your incision. 1. The small skin tapes can be removed 7 days after surgery if they have not fallen off by that point. 2. You may keep the wound open to air as much as possible to promote healing after post-op day number 5 unless told otherwise by your doctor. 3. If you think the wound looks like it is becoming infected (redness or worsening drainage) and/or you are experiencing fever, chill or worsening back pain and muscle spasms, contact the office so that we may evaluate you as soon as possible. B. Complications are uncommon, but please contact us if you have any signs or symptoms of: 1. wound infection (fever higher than 102.5 degrees F, redness, separation of wound, drainage, or increasing pain from the incision) 2. blood clots in legs (pain, swelling, redness and warmth in legs) 3. urinary tract infection (fever higher than 102.5 degrees F, burning upon urination or increased frequency of urination) 4. nerve problems (inability to walk on your toes or heels, numbness, loss of bowel or bladder control) 5. any other symptoms that concern you C. Please call the office at if you have any concerns or questions about your operation or recovery. D. No smoking! Smoking drastically decreases the chance of a solid fusion. E. Do not take any anti-inflammatory medications (Indocin, Advil, Motrin, Aspirin, Naprosyn, etc.) as these may inhibit the chance of a solid fusion. Tylenol is okay to take for pain. MANAGING PAIN AFTER SPINAL SURGERY 1. Narcotic medication is intended for short-term use and will be provided for surgical pain. Surgical pain usually lasts for a period of 4-6 weeks. Narcotic medication includes Percocet, Vicodin, Darvocet, Tylenol #3 or Lortab. 2. Longer-term pain is more appropriately treated with non-narcotic medication such as Tylenol ES. 3. Muscle spasm is not appropriately treated with narcotics. Muscle relaxers such as Soma, Flexeril or Skelaxin can be used along with Tylenol ES. 4. Remember that we all live with some "aches and pains". This is not unusual or uncommon after an injury or as we get older. a. Back pain is expected and may include muscle spasms for 4 to 6 weeks after surgery. The pain should gradually improve. If the pain worsens for no apparent reason, please contact the office. b. Intermittent leg pain may also be experienced and should not be concerned about unless it worsens for no apparent reason. If so, please contact the office. 5. We will provide appropriate medication within the normal guidelines of their prescribed use. We will also be very cautious and aware of potential abuse and extended duration of patients' medication needs. a. Pain medications are for your comfort and to assist with sleep and rest so that the tissue can heal. They are not provided in order to return to normal activity and should not be used through the day. To do so or worsening pain at night can result from ongoing tissue damage and development of tolerance to the prescribed medicine. 6. Please allow 2-3 days to process refills. Prescriptions will not be mailed but must be picked up at the office. FOLLOW UP VISIT: Keep your scheduled follow-up appointment. Any questions, please call the office at . Pending Studies at Discharge: No Stand-Alone Forms: [facility], Smoking Cessation Medications and DC Order Prescriptions: New tramadol 50 mg tablet 50 mg PO Q6H PRN (Reason: pain, moderate) Qty: 30 RF: 0 oxycodone 5 mg tablet 5 mg PO Q6H PRN (Reason: pain, severe) Qty: 30 RF: 0 Continued methylphenidate HCl [Concerta] 36 mg Tablet Extended Release 24hr 36 mg PO BID RF: 0 clonazepam [Klonopin] 1 mg Tablet 1 mg PO TID RF: 0 duloxetine [Cymbalta] 60 mg Capsule,Delayed Release(Dr/Ec) 60 mg PO QAM RF: 0 Discontinued ibuprofen 800 mg Tablet 800 mg PO TID PRN (Reason: Pain) RF: 0 Discharge Orders: Discharge Order (Routine); Ordered 10/23/20 Ordered By: Dhruv Portillo Admission Data Admit Date/Time: 10/21/20 09:58 Attending Provider: Dhruv Portillo Admit Provider: Dhruv Portillo Primary Care Provider: Luis Alberto Sheridan
--- NOTE | 2020-11-01 14:04 | Coding Query ---
CODING QUERY To promote full compliance with coding requirements relating to patient care, provider participation is requested in all cases of windsurfing instructor uncertainty. Please assist us with the question(s) below: Coding Question(s): The Operative Report documents, under Actual Procedures, "posterior spinal fusion L3-4 L4-5", and, "placement locally harvested morselized autograft in the posterior lateral gutters", however, placement of locally harvested morselized autograft was not documented in the Description of Procedure. Please specify below, regarding placement locally harvested morselized autograft in the posterior lateral gutters. ( x ) placement locally harvested morselized autograft in the posterior lateral gutters was done in the procedure ( ) placement locally harvested morselized autograft in the posterior lateral gutters was NOT done in the procedure ( ) Other: Please Specify Physician's Response(s): Thank you Octavia Strange Principal Diagnosis: "that condition established after study, to be chiefly responsible for occasioning the admission of the patient to the hospital for care." Co-Existing Principal Diagnosis: "when two or more diagnoses equally meet the criteria for principal diagnosis as determined by the circumstances of admission, diagnostic work up, and/or therapy provided, and the Alphabetic Index, Tabular List, or another coding guideline does not provide sequencing direction, any one of the diagnoses may be sequenced first." "When the physician has documented what appears to be a current diagnosis in the body of the record, but has not included the diagnosis in the final diagnostic statement, the physician should be asked whether the diagnosis should be added." (Source Coding [facility] 2 QTR90. p3-4) GABID
== END 2020-10-23 14:41 | disposition home or self-care (01) | DRG 455 ==
LOC: ASU 05:58 → 3E 09:58
DX: Z68.39 Body mass index [BMI] 39.0-39.9, adult; F32.9 Major depressive disorder, single episode, unspecified; M48.062 Spinal stenosis, lumbar region with neurogenic claudication; E66.9 Obesity, unspecified; F90.9 Attention-deficit hyperactivity disorder, unspecified type; F41.9 Anxiety disorder, unspecified; Z79.899 Other long term (current) drug therapy